=== PATIENT | male | born 1985 | race African-American/Black ===

== ENCOUNTER → 2019-05-27 | Outpatient (CLI) | payer MEDICAID ==
[2016-01-13 14:20] VITALS: BP 112/65
--- NOTE | 2019-05-27 15:44 | RAD ---
Examination: US CHEST History: Palpable lateral left chest wall mass Comparison/Correlation: None Findings: Ultrasound imaging of the left chest wall laterally at the site of the reported palpable abnormality was performed. There is a 3.8 cm x 2.9 cm x 0.9 cm tall well-circumscribed intermediate echogenicity structure superficial to the chest wall musculature. No flow within it. Striations are present within it. 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 No suspicious features. If there is continued increase in size or other symptoms at this site, further imaging with MRI or CT to further characterize is recommended. Electronically signed by: Anderson Richardson MD (05/27/2019 3:40 PM) [facility]
== END | disposition home or self-care (01) ==
LOC: US 10:51
PROVIDERS: ATTEND Nurse Practitioner Family
DX: R22.2 Localized swelling, mass and lump, trunk (principal)
CPT/HCPCS: 76604